=== PATIENT | male | born 1960 | race Caucasian/White ===

== ENCOUNTER 2016-07-30 01:27 | Emergency (ER) | payer SELFPAY ==
[2016-07-30] MEDS ORDERED: HYDROCODONE/ACETAMINOPHEN 5/325MG TABLET ONE (02:45)
[2016-07-30] MEDS ORDERED: CEFTRIAXONE SODIUM 250 MG VIAL ONE (03:20)
[2016-07-30] MEDS ORDERED: LEVOFLOXACIN 250 MG TABLET ONE (03:21)
[2016-07-30 03:42] LABS: SPECIFIC GRAVITY 1.015 (1.001-1.030); URINE BILIRUBIN NEGATIVE (NEGATIVE); URINE BLOOD NEGATIVE (NEGATIVE); URINE GLUCOSE (UA) NEGATIVE (NEGATIVE); URINE LEUKOCYTE ESTERASE 1+ (NEGATIVE); URINE NITRITE NEGATIVE (NEGATIVE); URINE PROTEIN NEGATIVE (NEGATIVE)
[2016-07-30 03:47] LABS: URINE APPEARANCE CLOUDY; URINE COLOR DARK YELLOW; URINE UROBILINOGEN 4 mg/dL (0-1 mg/dl)
[2016-07-30 03:48] LABS: URINE BACTERIA TRACE; URINE RBC 0-1 /hpf
--- NOTE | 2016-07-30 07:56 | US ---
SCROTUM CONTENTS HISTORY: Left testicular pain. COMPARISONS: None. FINDINGS: The testicles appear to be of asymmetric size with the right testicle measuring 2.5 x 1.9 x 1.3 cm. The left testicle measures 3.8 x 2.0 x 2.7 cm. There is flow within both testicles which appears to be asymmetric. Increased flow is identified throughout the left testicle. There is also prominent increased flow observed within the left epididymis. Complex fluid is seen adjacent to the left testicle with numerous internal septations. There are no discrete testicular mass is visualized. The right epididymis is unremarkable. IMPRESSION: 1. Findings suggesting left-sided epididymoorchitis with a complex septated left-sided hydrocele. The findings were called to the emergency room at 0229 hours, 07/30/2016, by [facility] radiology.
[2016-08-01 12:34] LABS: CHLAMYDIA BD Negative (Negative); N.GONORRHOEAE BD Negative (Negative); SOURCE Urine (())
== END 2016-07-30 04:22 | disposition home or self-care (01) ==
LOC: ED 01:27
DX: N45.1 Epididymitis (principal); I10 Essential (primary) hypertension
CPT/HCPCS: 87491; 87591; 87086; 81001; 76870; 99283 ×2; 96372; A9270 ×2; J0696